=== PATIENT | male | born 2000 | race Caucasian/White ===

== ENCOUNTER 2022-01-21 22:32 | Emergency (ER) | payer MEDICAID | END 2022-01-22 00:27 | disposition home or self-care (01) | LOC: JP.ED 22:32 | DX: S80.01XA Contusion of right knee, initial encounter (principal); S80.02XA Contusion of left knee, initial encounter; Z86.16 Personal history of COVID-19; W17.89XA Other fall from one level to another, initial encounter | CPT/HCPCS: 735622650; 73562-50; 99283 ==

== ENCOUNTER 2024-01-31 20:26 | Emergency (ER) | payer SELFPAY ==
[2024-01-31 21:54] LABS: BASOPHILS ABSOLUTE AUTO 0.04 K/uL (0.00-0.10); BASOPHILS PERCENT AUTO 0.2 % (0.1-1.3); EOSINOPHILS ABSOLUTE AUTO 0.01 K/uL (0.00-0.40); EOSINOPHILS PERCENT AUTO 0.1 % (0.0-5.4); HEMATOCRIT 43.3 % (38.4-49.7); IMMATURE GRAN ABSOLUTE AUTO 0.07 K/uL (0.00-0.23); IMMATURE GRAN PERCENT AUTO 0.4 % (0.0-0.7); LYMPHOCYTES ABSOLUTE AUTO 1.97 K/uL (0.8-3.3); LYMPHOCYTES PERCENT AUTO 11.1 % (11.4-47.7); MEAN CORPUSCULAR HGB CONC 34.6 g/dL (31.6-35.5); MEAN CORPUSCULAR VOLUME 86.6 fL (81.4-99.0); MONOCYTES PERCENT AUTO 8.4 % (3.3-12.6); NEUTROPHILS PERCENT AUTO 79.8 % (40.0-78.1); PLATELET COUNT,PLT 303 K/uL (130-375); WHITE BLOOD CELL COUNT,WBC 17.8 K/uL (3.2-11.0)
[2024-01-31 22:10] LABS: ANION GAP 9.8 mmol/L (5.0-14.0); C-REACTIVE PROTEIN 1.44 mg/dL (<0.50); CALCIUM 9.3 mg/dL (8.5-10.1); CREATININE 1.1 mg/dL (0.8-1.3); EST CRCL DRUG DOSING (CG) 108.76 mL/min; POTASSIUM,K 3.8 mmol/L (3.6-5.2)
[2024-01-31 22:16] LABS: LACTIC ACID 1.3 mmol/L (0.4-2.0)
[2024-01-31] MEDS: Sodium Chloride 0.9% 60 ML IV SCH (22:16)
[2024-01-31] MEDS: Iopamidol 612 MG/ML 100 ML Bottle IV SCH (22:16)
[2024-01-31] MEDS: Sodium Chloride 0.9% 1,000 ML IV SCH (22:20)
[2024-01-31] MEDS: Piperacillin/Tazobactam 4.5 GM in Sodium Chloride 0.9% 100 ML IV ONE (23:21)
[2024-02-01] MEDS ORDERED: Ondansetron 4 MG Tab.DIS PO PRN ×2 (00:02→05:23)
[2024-02-01] MEDS ORDERED: HYDROmorphone 1 MG/ML Syringe IVPUSH PRN (00:02)
[2024-02-01] MEDS ORDERED: Acetaminophen 325 MG Tab PO PRN (00:02)
[2024-02-01] MEDS: Ondansetron 4 MG/2 ML SDV IV PRN (00:11)
[2024-02-01] MEDS: Sodium Chloride 0.9% 1,000 ML IV SCH (00:14)
[2024-02-01] MEDS: Piperacillin/Tazobactam 4.5 GM in Sodium Chloride 0.9% 100 ML IV SCH (00:31)
[2024-02-01] MEDS ORDERED: Ondansetron 4 MG/2 ML SDV IV PRN (05:23)
[2024-02-01 05:57] LABS: HEMATOCRIT 40.8 % (38.4-49.7); HEMOGLOBIN 13.8 g/dL (12.9-16.9); MEAN CORPUSCULAR HEMOGLOBIN 29.7 pg (31.6-35.5); MEAN CORPUSCULAR HGB CONC 33.8 g/dL (31.6-35.5); MEAN CORPUSCULAR VOLUME 87.7 fL (81.4-99.0); RED BLOOD CELL COUNT 4.65 M/uL (4.14-5.76); WHITE BLOOD CELL COUNT,WBC 14.4 K/uL (3.2-11.0)
[2024-02-01 06:16] LABS: ANION GAP 7.7 mmol/L (5.0-14.0); CALCIUM 8.7 mg/dL (8.5-10.1); CREATININE 1.2 mg/dL (0.8-1.3); EST CRCL DRUG DOSING (CG) 99.7 mL/min; POTASSIUM,K 3.7 mmol/L (3.6-5.2)
[2024-02-01] MEDS ORDERED: HYDROmorphone 0.5 MG/0.5 ML Syringe IVPUSH PRN (07:22)
[2024-02-01] MEDS ORDERED: Neostigmine Methylsulfate 10 MG/10 ML MDV ONE (08:20)
[2024-02-01] MEDS ORDERED: Propofol 200 MG/20 ML SDV ONE (08:20)
[2024-02-01] MEDS ORDERED: Rocuronium 50 MG/5 ML Vial ONE (08:20)
[2024-02-01] MEDS ORDERED: Glycopyrrolate 0.2 MG/ML 5 ML MDV ONE (08:20)
[2024-02-01] MEDS ORDERED: Dexamethasone 4 MG/ML SDV ONE (08:20)
[2024-02-01] MEDS ORDERED: Ondansetron 4 MG/2 ML SDV ONE (08:20)
[2024-02-01] MEDS ORDERED: fentaNYL 250 MCG/5 ML SDV ONE ×2 (08:20→08:55)
[2024-02-01] MEDS ORDERED: Sodium Chloride 0.9% 10 ML ONE (08:25)
[2024-02-01] MEDS ORDERED: ceFAZolin 1 GM Vial ONE (08:25)
[2024-02-01] MEDS: Bupivacaine 0.25%/EPINEPHrine 1:200,000 30 ML SDV ONE (09:15)
[2024-02-01] MEDS ORDERED: Lactated Ringers 1,000 ML ONE (09:25)
[2024-02-01] MEDS ORDERED: Ketorolac 30 MG/ML SDV ONE (09:25)
[2024-02-01] MEDS: Piperacillin/Tazobactam/Dext 4.5 GM in Premix Bag 1 BAG IV SCH (11:12)
== END 2024-02-01 15:17 | disposition home or self-care (01) ==
LOC: JP.ED 20:26 → JP.MS 23:40
PROVIDERS: ADMIT Registered Nurse; ATTEND Surgery
DX: K35.80 Unspecified acute appendicitis (principal); Z86.16 Personal history of COVID-19
CPT/HCPCS: 36415; 74177; 80048; 83605; 85025; 85027; 86140; 96361; 96365; 96366; 96375; 96376; 99285; G0378; J0690; J1100; J1596; J1885; J2405; J2543; J2704; J2710; J3010; J3490; J7030; J7120; Q9967

== ENCOUNTER 2024-02-10 01:16 | Emergency (ER) | payer SELFPAY ==
[2024-02-10 01:53] LABS: BASOPHILS ABSOLUTE AUTO 0.06 K/uL (0.00-0.10); BASOPHILS PERCENT AUTO 0.4 % (0.1-1.3); EOSINOPHILS ABSOLUTE AUTO 0.27 K/uL (0.00-0.40); EOSINOPHILS PERCENT AUTO 1.6 % (0.0-5.4); HEMATOCRIT 43.6 % (38.4-49.7); HEMOGLOBIN 15.1 g/dL (12.9-16.9); IMMATURE GRAN ABSOLUTE AUTO 0.12 K/uL (0.00-0.23); IMMATURE GRAN PERCENT AUTO 0.7 % (0.0-0.7); LYMPHOCYTES ABSOLUTE AUTO 1.41 K/uL (0.8-3.3); LYMPHOCYTES PERCENT AUTO 8.2 % (11.4-47.7); MEAN CORPUSCULAR HEMOGLOBIN 29.9 pg (31.6-35.5); MEAN CORPUSCULAR HGB CONC 34.6 g/dL (31.6-35.5); MEAN CORPUSCULAR VOLUME 86.3 fL (81.4-99.0); MONOCYTES ABSOLUTE AUTO 0.93 K/uL (0.20-0.90); MONOCYTES PERCENT AUTO 5.4 % (3.3-12.6); NEUTROPHILS ABSOLUTE AUTO 14.35 K/uL (1.0-7.6); NEUTROPHILS PERCENT AUTO 83.7 % (40.0-78.1); PLATELET COUNT,PLT 476 K/uL (130-375); RED BLOOD CELL COUNT 5.05 M/uL (4.14-5.76); WHITE BLOOD CELL COUNT,WBC 17.1 K/uL (3.2-11.0)
[2024-02-10 02:08] LABS: CALCIUM 9.3 mg/dL (8.5-10.1); CREATININE 1.3 mg/dL (0.8-1.3); EST CRCL DRUG DOSING (CG) 92.03 mL/min
== END 2024-02-10 02:37 | disposition home or self-care (01) ==
LOC: JP.ED 01:16
DX: K59.1 Functional diarrhea (principal); Z86.16 Personal history of COVID-19; Z90.49 Acquired absence of other specified parts of digestive tract
CPT/HCPCS: 36415; 80048; 85025; 87493; 89055; 99283; 99284